=== PATIENT | female | born 1980 | race Caucasian/White ===

== ENCOUNTER 2017-01-20 20:39 | Emergency (ER) | payer SELFPAY ==
[~2017-01-20] VITALS: Ht 167.6 cm; Wt 75.0 kg
[2017-01-20] MEDS ORDERED: ceFAZolin 2 GM PREMIX 50 ML IV STA (20:43)
[2017-01-20] MEDS ORDERED: DIPHTH/TETANUS/ACEL PERTUSSIS (BOOSTER) 0.5 ML VIAL/PFS IM ONE (20:43)
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
[2017-01-20 21:14] LABS: I-STAT POTASSIUM 6.4 MMOL/L (3.5-4.9); I-STAT SODIUM 142 MMOL/L (138-146)
[2017-01-20] MEDS ORDERED: IOHEXOL 350 MG/ML 10 ML VIAL (for RAD DIAG) IV ONE (21:14)
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
[2017-01-20 21:25] VITALS: BP 136/91; PULSE 100; RESP 16; TEMP 99.1; O2SAT 98
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
[2017-01-20 21:28] VITALS: O2SAT 98
[2017-01-20 21:33] LABS: BETA HCG QUANT LESS THAN 1 MIU/ML (0-5)
[2017-01-20 21:36] LABS: AUTOMATED NEUTROPHIL # 3.1 TH/MM3 (1.8-7.7); BASOPHIL % 0.4 % (0.0-2.0); EOSINOPHIL # 0.1 TH/MM3 (0-0.4); EOSINOPHIL % 2.7 % (0.0-4.0); HEMATOCRIT 37.9 % (35.0-46.0); HEMO FLAGS DIFF FINAL; LYMPH % 31.3 % (9.0-44.0); LYMPHOCYTE # 1.7 TH/MM3 (1.0-4.8); MEAN CELL VOLUME 99.1 FL (80.0-100.0); MEAN CORPUSCULAR HGB CONC 33.3 % (32.0-36.0); MONO % 9.2 % (0.0-8.0); NEUT % 56.4 % (16.0-70.0); PLATELET COUNT 191 TH/MM3 (150-450); RED BLOOD COUNT 3.82 MIL/MM3 (4.00-5.30); RED CELL DISTRIBUTION WIDTH 13.8 % (11.6-17.2); WHITE BLOOD COUNT 5.5 TH/MM3 (4.0-11.0)
[2017-01-20] MEDS ORDERED: SODIUM CHLOR 0.9% 1000 ML INJ 1,000 ML IV ONE (22:00)
[2017-01-20] MEDS ORDERED: LORazepam 2 MG/ML VIAL IV PUSH ONE (22:15)
[2017-01-20] MEDS ORDERED: LIDOCAINE HCL 1% PF 30 ML VIAL ONE (22:26)
[2017-01-20] MEDS ORDERED: LIDOCAINE 1%/EPINEPHrine 1:100,000 SOLN 20 ML VIAL INFIL ONE (22:30)
--- NOTE | 2017-01-20 23:07 | PD ---
Physical Exam Narrative Assessment by Dr. Wills to repair patient's laceration. Please see her documentation for full H&P. Data Data Last Documented VS Vital Signs Date Time Temp Pulse Resp B/P Pulse Ox O2 Delivery O2 Flow Rate FiO2 01/20/17 21:28 98 Nasal Cannula 2 01/20/17 21:25 99.1 100 16 136/91 Orders I-Stat Profile (01/20/17 20:41) I-Stat Creatinine (01/20/17 20:41) Complete Blood Count With Diff (01/20/17 20:41) Prothrombin Time / Inr (Pt) (01/20/17 20:41) Act Partial Throm Time (Ptt) (01/20/17 20:41) Type And Screen (01/20/17 20:41) Chest, Single Ap (01/20/17 20:41) Pelvis, Ap Only (Routine) (01/20/17 20:41) Ct Brain W/O Iv Contrast(Rout) (01/20/17 20:41) Ct Cerv Spine W/O Contrast (01/20/17 20:41) Ct Abd/Pel W Iv Contrast(Rout) (01/20/17 20:41) Iv Access Insert/Monitor (01/20/17 20:41) Ecg Monitoring (01/20/17 20:41) Oximetry (01/20/17 20:41) Oxygen Administration (01/20/17 20:41) Knee, Ltd (1 Or 2vws) (01/20/17 ) Drug Screen, Random Urine (01/20/17 21:00) Alcohol (Ethanol) (01/20/17 20:41) Beta Hcg (Quant/Titer) (01/20/17 20:41) Iohexol 350 Inj (Omnipaque 350 Inj) (01/20/17 21:14) Cefazolin 2 Gm Premix (Ancef 2 Gm Premix (01/20/17 20:43) Qcbt-Qra-Ubjgey (Booster) Inj (Boostrix (01/20/17 20:43) Sodium Chlor 0.9% 1000 Ml Inj (Ns 1000 M (01/20/17 22:00) Lorazepam Inj (Ativan Inj) (01/20/17 22:15) Lidocai-Epi 1%-1:100,000 Inj (Xylocaine- (01/20/17 22:30) Lidocaine Pf 1% Inj (Xylocaine-Mpf 1% In (01/20/17 22:26) Labs Laboratory Tests Test 01/20/17 01/20/17 20:45 21:26 Bedside Hemoglobin 14.3 G/DL Bedside Hematocrit 42.0 % Bedside Sodium 142 MMOL/L Bedside Potassium 6.4 MMOL/L Bedside Chloride 112 MMOL/L Bedside Blood Urea Nitrogen 11 MG/DL Bedside Creatinine 1.0 MG/DL Bedside Glucose 86 MG/DL Human Chorionic Gonadotropin, LESS THAN 1 Quant MIU/ML Ethyl Alcohol Level 295 MG/DL Blood Type O POSITIVE Antibody Screen NEGATIVE White Blood Count 5.5 TH/MM3 Red Blood Count 3.82 MIL/MM3 Hemoglobin 12.6 GM/DL Hematocrit 37.9 % Mean Corpuscular Volume 99.1 FL Mean Corpuscular Hemoglobin 33.0 PG Mean Corpuscular Hemoglobin 33.3 % Concent Red Cell Distribution Width 13.8 % Platelet Count 191 TH/MM3 Mean Platelet Volume 8.8 FL Neutrophils (%) (Auto) 56.4 % Lymphocytes (%) (Auto) 31.3 % Monocytes (%) (Auto) 9.2 % Eosinophils (%) (Auto) 2.7 % Basophils (%) (Auto) 0.4 % Neutrophils # (Auto) 3.1 TH/MM3 Lymphocytes # (Auto) 1.7 TH/MM3 Monocytes # (Auto) 0.5 TH/MM3 Eosinophils # (Auto) 0.1 TH/MM3 Basophils # (Auto) 0.0 TH/MM3 CBC Comment DIFF FINAL Differential Comment [facility] Supervised Visit with JENNIFER: No Narrative Course The patient suffered laceration to the extremity. There was no evidence to suggest foreign bodies. Visual, tactile and radiographic exams were unremarkable without evidence of foreign body at this time. There was no evidence of neurovascular injury. The patient had a normal distal vascular exam , and had full normal motor and sensory exams. There was also no evidence or tendon injury, with normal distal full range of motions, flexion, extension, abduction, adduction and opponens. There was no evidence of local joint space involvement at this time. The patient was irrigated with copious sterile normal saline and primary repair was performed. Please see procedure note. The patient was given signs and symptom warnings for infection, such as increasing pain, redness, swelling, associated heat, pus or fever. The patient was warned of possible unseen foreign body and instructed to return immediately if signs or symptoms develop. The patient was given instructions for timely follow up and for removal/SR. The patient agreed with plan of care. Procedures Procedure Narrative LACERATION REPAIR LOCATION: Right lateral knee LENGTH: Proximate 10 cm in total length NUMBER OF STITCHES/DANIA: 11 stitches combination simple mattress and simple interrupted REPAIR: Verbal consent was obtained. The area of the laceration was cleaned and prepped. The laceration was infiltrated with lidocaine without epi. The wound was copiously irrigated and explored without evidence of foreign body, bony involvement, ligament injury, tendon injury, or neurovascular injury. The wound was closed using 3-0 Ethilon. This was a single layer repair. A sterile dressing was applied by nurse. The patient was advised to keep the affected area as clean and dry as possible using soap and water. There were no complications. Patient tolerated the procedure well. Scripts No Active Prescriptions or Reported Meds Tomasz Fall January 20, 2017 23:07
== END 2017-01-20 23:51 | disposition home or self-care (01) ==
LOC: EDBD 20:39 → NEPI 20:39 → NEPD 23:51
DX: S81.011A Laceration without foreign body, right knee, initial encounter (principal); F10.929 Alcohol use, unspecified with intoxication, unspecified; Z23 Encounter for immunization; Z72.0 Tobacco use; Z87.19 Personal history of other diseases of the digestive system; V87.8XXA Person injured in other specified noncollision transport accidents involving motor vehicle (traffic), initial encounter
CPT/HCPCS: 12004; 70450; 71010; 72125; 72170; 73560; 74177; 80307; 82435; 82565; 82947; 84132; 84295; 84520; 84702; 85025; 86850; 86900; 86901; 90471; 90715; 96374; 96375; 99285; J0690; J2060; Q9967; 85610; 85730

== ENCOUNTER 2017-07-16 18:03 | Emergency (ER) | payer SELFPAY ==
[2017-07-16 18:06] VITALS: BP 138/83; PULSE 136; RESP 22; TEMP 98.5; O2SAT 98
== END 2017-07-16 18:32 | disposition left against medical advice (07) ==
LOC: NED 18:25
DX: M79.606 Pain in leg, unspecified (principal); Z53.21 Procedure and treatment not carried out due to patient leaving prior to being seen by health care provider
CPT/HCPCS: 99281

== ENCOUNTER 2017-07-25 07:14 | Emergency (ER) | payer SELFPAY ==
[~2017-07-25] VITALS: Ht 162.6 cm; Wt 77.0 kg
[2017-07-25 07:24] VITALS: BP 152/108; PULSE 108; RESP 21; O2SAT 95
[2017-07-25] MEDS ORDERED: SODIUM CHLORIDE 0.9% FLUSH 10 ML FLUSH IVF PRN (07:30)
--- NOTE | 2017-07-25 07:36 | PD ---
HPI Chief Complaint: Pain: Acute or Chronic Time Seen by Provider: 07:22 Travel History International Travel<30 days: No Contact w/Intl Traveler<30days: No Traveled to known affect area: No History of Present Illness HPI 37-year-old female presents by ambulance after she states she got tripped up and fell. She states she is worried she injured herself that she had her cast and her jaw. She states she lost consciousness. She states she is having pain to her cast area and her jaw. She denies any other concurrent complaints but history is limited. Her vitals were stable in route. [facility] Past Medical History Anxiety: Yes Cirrhosis: Yes Diminished Hearing: No Hepatitis: Yes (HEP C ) Renal Failure: Yes Seizures: Yes Influenza Vaccination: No ?: Not LMP: 07/12/17 Past Surgical History Other Surgery: Yes (RIGHT CHEST TUBE, BLUNT FORCE TRAUMA) Social History Alcohol Use: Yes (1 GALLON VODKA A DAY) Tobacco Use: Yes (1 PPD) Substance Use: Yes (MARIJUANA) Allergies-Medications (Allergen,Severity, Reaction): Coded Allergies: No Known Allergies (Unverified , 01/20/17) Reported Meds & Prescriptions Reported Meds & Active Scripts Active No Active Prescriptions or Reported Medications Review of Systems Except as stated in HPI: all other systems reviewed are Neg Physical Exam Narrative GENERAL: Well-nourished, well-developed patient. SKIN: Warm and dry. Old simple laceration noted to the hand HEAD: Normocephalic and atraumatic. EYES: No injection or drainage. Pupils equal ENT: No nasal drainage noted. NECK: Supple, trachea midline. Nontender in midline CARDIOVASCULAR: Regular rate and rhythm RESPIRATORY: Breath sounds equal bilaterally at apices. No accessory muscle use. GASTROINTESTINAL: Abdomen soft, non-tender, nondistended. EXTREMITIES: Patient states she is having pain to her heel, cast has small indention in this area, no pain with other joints , neurovascularly intact, exam is limited given cast BACK: Nontender without obvious deformity. NEUROLOGICAL: Awake and alert. Motor and sensory grossly within normal limits. Slurred speech. Data Data Last Documented VS Vital Signs Date Time Temp Pulse Resp B/P (MAP) Pulse Ox O2 Delivery O2 Flow Rate FiO2 07/25/17 07:24 108 21 152/108 (123) [address] Brain W/O Iv Contrast(Rout) (07/25/17 07:27) Ct Facial Bones W/O Iv Cont (07/25/17 07:27) Ecg Monitoring (07/25/17 07:27) Oximetry (07/25/17 07:27) Sodium Chloride 0.9% Flush (Ns Flush) (07/25/17 07:30) Tibia/Fibula (Ap/Lat) (07/25/17 ) Radiology Film Requests (07/25/17 ) Ketorolac Inj (Toradol Inj) (07/25/17 14:00) Ed Discharge Order (07/25/17 14:19) [facility] Medical Decision Making Medical Screen Exam Complete: Yes Emergency Medical Condition: Yes Medical Record Reviewed: Yes (past history confirmed) Interpretation(s) Last [address] 07/25/17726 Signed Impressions: Service Date/Time: July 07:39 - CONCLUSION: Transverse nondisplaced fracture of the inferior body of the left mandible. Librado Bernal MD Head CT 07/25/17726 Signed Impressions: Service Date/Time: July 07:37 - CONCLUSION: Negative noncontrast CT brain. Librado Bernal MD Tibia/Fibula X-Ray 07/25/17 0000 Signed Impressions: Service Date/Time: July 07:41 - CONCLUSION: Persistent visualization of the fracture lucencies of the distal tibia and fibula without evidence of malalignment and with intact internal fixation hardware. Librado Bernal MD Differential Diagnosis Hardware fracture, bleed, strain, fracture Narrative Course Will check blood work, trauma imaging and reevaluate Hardware intact without new fracture, CT facial transverse nondisplaced fracture of inferior body of left mandible, will discuss with cranial facial for close follow-up treatment technician came and added padding to cast, patient advised that she needs to be nonweightbearing and follow with orthopedic physician as an outpatient, patient now has clear speech and can ambulate without assistance, she admits to drinking alcohol earlier, she denies any new complaints now she is not wanting blood work and given she is now awake alert and appropriate without complaints otherwise this will be canceled, patient elected to leave before discharge paperwork per staff Physician Communication Physician Communication physician covering for [facility] at [place] states to have patient call to follow on saturday and gave number, follow soft diet Diagnosis Primary Impression: Fracture of left side of mandibular body Qualified Codes: S02.602A - Fracture of unspecified part of body of left mandible, initial encounter for closed fracture Additional Impression: Fall Qualified Codes: W19.XXXA - Unspecified fall, initial encounter Patient Instructions: General Instructions Additional Instructions: follow soft diet, call [phone] for follow saturday with [facility] facial surgeon , return as needed, tylenol as needed for pain, limit alcohol use Med/Other Pt SpecificInfo: No Change to Meds Scripts No Active Prescriptions or Reported Meds Disposition: 01 DISCHARGE HOME Condition: Stable Katie Alfaro MD Jul 25, 2017 07:36
--- NOTE | 2017-07-25 07:54 | RADRPT ---
EXAM DATE/TIME: 07/25/2017 07:41 [facility] COMPARISON: No previous studies available for comparison. INDICATIONS : Left medial ankle pain. MEDICAL HISTORY : Left ankle fracture SURGICAL HISTORY : ORIF left ankle ENCOUNTER: Initial ACUITY: 1 day PAIN SCORE: 7/10 LOCATION: Left tibia/fibula FINDINGS: 2 views of the leg and ankle are performed in cast. Internal fixation hardware including a lateral f ibular plate with transosseous transverse screw and 2 screws in the medial tibia. The fracture lucen cy of the medial malleolus is still discernible and there is no displacement or angulation of the fra ctures of the tibia or fibula. No bridging callus. CONCLUSION: Persistent visualization of the fracture lucencies of the distal tibia and fibula without evidence of malalignment and with intact internal fixation hardware. Librado Bernal MD on July 25, 2017 at 7:51 Board Certified Radiologist. This report was verified electronically.
--- NOTE | 2017-07-25 08:08 | RADRPT ---
EXAM DATE/TIME: 07/25/2017 07:37 [facility] COMPARISON: CT BRAIN W/O CONTRAST, January 20, 2017, 21:00. INDICATIONS : Patient fell, complains of left jaw pain RADIATION DOSE: 56.35 CTDIvol (mGy) MEDICAL HISTORY : None SURGICAL HISTORY : None. ENCOUNTER: Initial ACUITY: 1 day PAIN SCALE: 0/10 LOCATION: cranial TECHNIQUE: Multiple contiguous axial images were obtained of the head. Using automated exposure control and adj ustment of the mA and/or kV according to patient size, radiation dose was kept as low as reasonably a chievable to obtain optimal diagnostic quality images. DICOM format image data is available electro nically for review and comparison. FINDINGS: CEREBRUM: The ventricles are normal for age. No evidence of midline shift, mass lesion, hemorrhage or acute in farction. No extra-axial fluid collections are seen. POSTERIOR FOSSA: The cerebellum and brainstem are intact. The 4th ventricle is midline. The cerebellopontine angle i s unremarkable. EXTRACRANIAL: The visualized portion of the orbits is intact. SKULL: The calvaria is intact. No evidence of skull fracture. CONCLUSION: Negative noncontrast CT brain. Librado Bernal MD on July 25, 2017 at 8:05 Board Certified Radiologist. This report was verified electronically.
--- NOTE | 2017-07-25 08:11 | RADRPT ---
EXAM DATE/TIME: 07/25/2017 07:39 [facility] COMPARISON: No previous studies available for comparison. INDICATIONS : Patient fell, complains of left jaw pain RADIATION DOSE: 36.69 CTDIvol (mGy) MEDICAL HISTORY : None SURGICAL HISTORY : None. ENCOUNTER: Initial ACUITY: 1 day PAIN SCORE: 7/10 LOCATION: Left jaw TECHNIQUE: Volumetric scanning of the facial bones was performed. Using automated exposure control and adjustme nt of the mA and/or kV according to patient size, radiation dose was kept as low as reasonably achiev able to obtain optimal diagnostic quality images. DICOM format image data is available electronicall y for review and comparison. FINDINGS: There is a transverse fracture through the inferior body of the left mandible, best demonstrated on c oronal reconstruction images. No displacement at the fracture line. Remainder of the mandible, incl uding condyles are intact. The nasal bone, axilla, zygomatic arches, pterygoid plates, and infraorbi rosemarie rim are intact. No significant soft tissue thickening. CONCLUSION: Transverse nondisplaced fracture of the inferior body of the left mandible. Librado Bernal MD on July 25, 2017 at 8:06 Board Certified Radiologist. This report was verified electronically.
[2017-07-25] MEDS ORDERED: KETOROLAC TROMETHAMINE 60 MG/2 ML (IM) VIAL IM ONE (14:00)
== END 2017-07-25 14:33 | disposition home or self-care (01) ==
LOC: NEPC 07:14
DX: S02.602A Fracture of unspecified part of body of left mandible, initial encounter for closed fracture (principal); F41.9 Anxiety disorder, unspecified; K74.60 Unspecified cirrhosis of liver; N19 Unspecified kidney failure; R56.9 Unspecified convulsions; F17.200 Nicotine dependence, unspecified, uncomplicated; W01.0XXA Fall on same level from slipping, tripping and stumbling without subsequent striking against object, initial encounter; Z86.19 Personal history of other infectious and parasitic diseases
CPT/HCPCS: 70450; 70486; 73590; 96372; 99285; J1885